=== PATIENT | female | born 1990 | race Two or more races ===

== ENCOUNTER 2018-08-08 09:44 | Outpatient (CLI) | payer BC ==
--- NOTE | 2018-08-08 16:27 | Ultrasound Report ---
Reason: MASTALGIA Procedure Date: 08/08/2018 Accession Number: [id number] / [id number] Procedure: US - Breast Unilateral Limited CPT Code: FULL RESULT: EXAM: Breast Unilateral Limited DATE: 08/08/2018 10:33 AM CLINICAL HISTORY: 28-year-old with intermittent lateral breast pain for 3 months. No lumps per patient or physician exam. TECHNIQUE: Real-time ultrasound performed of the left breast. COMPARISON: Baseline exam. FINDINGS: Real-time ultrasound of the left breast performed. Left breast: The lateral and upper outer quadrant of the left breast is imaged in the region of the symptoms as directed by the patient. Only normal tissues are noted. Healthcare Advisory Services Manager normal images are obtained from 2:30 o'clock, 7 cm from the nipple. IMPRESSION: Negative. BI-RADS Category 1. RECOMMENDATION: Clinical follow-up with PCP for symptoms of the breast pain. Patient should return for additional evaluation for any increase in current symptoms or new symptoms/concerns. Otherwise recommend annual mammography beginning at age 40, based on average risk. BI-RADS CATEGORY 1: Negative
--- NOTE | 2018-08-08 16:31 | Ultrasound Report ---
Reason: LEFT BRST PAIN Procedure Date: 08/08/2018 Accession Number: [id number] / [id number] Procedure: US - Breast Unilateral Limited CPT Code: FULL RESULT: EXAM: Breast Unilateral Limited DATE: 08/08/2018 10:33 AM CLINICAL HISTORY: 28-year-old with intermittent lateral breast pain for 3 months. No lumps per patient or physician exam. TECHNIQUE: Real-time ultrasound performed of the right breast. COMPARISON: Baseline exam. FINDINGS: Real-time ultrasound of the right breast performed. Right breast: The lateral and upper outer quadrant of the right breast is imaged in the region of the symptoms as directed by the patient. Only normal tissues are noted. Attache normal images are obtained from 9 o'clock, 9 cm from the nipple. IMPRESSION: Negative. BI-RADS Category 1. RECOMMENDATION: Clinical follow-up with PCP for symptoms of the breast pain. Patient should return for additional evaluation for any increase in current symptoms or new symptoms/concerns. Otherwise recommend annual mammography beginning at age 40, based on average risk. BI-RADS CATEGORY 1: Negative
== END 2018-08-08 09:45 | disposition home or self-care (01) ==
LOC: DI 09:44
PROVIDERS: ATTEND Nurse Practitioner Obstetrics & Gynecology
DX: N64.4 Mastodynia (principal)
CPT/HCPCS: 76642

== ENCOUNTER 2019-04-07 08:00 | Outpatient (CLI) | payer BC | END 2019-04-07 23:59 | disposition home or self-care (01) | LOC: LAB.R 08:00 | PROVIDERS: ATTEND Nurse Practitioner Obstetrics & Gynecology | DX: N39.0 Urinary tract infection, site not specified (principal) | CPT/HCPCS: 87086; 87181 ==